=== PATIENT | male | born 1975 | race Caucasian/White ===

== ENCOUNTER 2024-02-18 05:06 | Emergency (ER) | payer BC ==
[2024-02-18] MEDS ORDERED: Sodium Chloride 0.9% 10 ML Syringe FLUSH PRN (05:38)
[2024-02-18 05:39] LABS: BASOPHILS ABSOLUTE AUTO 0.02 K/uL (0.00-0.20); BASOPHILS PERCENT AUTO 0.2 % (0.0-2.0); EOSINOPHILS ABSOLUTE AUTO 0.09 K/uL (0.00-0.50); EOSINOPHILS PERCENT AUTO 0.9 % (0.0-5.0); HEMATOCRIT 39.3 % (39.0-49.0); HEMOGLOBIN 13.4 g/dL (13.1-16.8); LYMPHOCYTES ABSOLUTE AUTO 1.78 K/uL (0.50-3.50); LYMPHOCYTES PERCENT AUTO 18.7 % (10.0-50.0); MEAN CORPUSCULAR HEMOGLOBIN 30.2 pg (28.2-33.3); MEAN CORPUSCULAR HGB CONC 34.1 g/dL (31.7-36.0); MEAN CORPUSCULAR VOLUME 88.5 fL (84.0-98.0); MONOCYTES ABSOLUTE AUTO 0.62 K/uL (0.00-1.00); MONOCYTES PERCENT AUTO 6.5 % (2.0-14.0); NEUTROPHILS PERCENT AUTO 73.7 % (45.0-80.0); PLATELET COUNT,PLT 213 K/uL (150-350); RED BLOOD CELL COUNT 4.44 M/uL (4.33-5.41); RED CELL DISTRIBUTION WIDTH 12.1 % (11.2-14.1); WHITE BLOOD CELL COUNT,WBC 9.5 K/uL (4.0-10.2)
[2024-02-18 06:01] LABS: ALANINE AMINOTRANSFERASE,ALT 336 U/L (12-78); ALBUMIN 3.4 g/dL (3.4-5.0); ALKALINE PHOSPHATASE 103 IU/L (46-116); ANION GAP 5.7 meq/L (7-15); ASPARTATE AMNIOTRANSFERASE,AST 189 U/L (15-37); BLOOD UREA NITROGEN,BUN 17 mg/dL (7-18); CALCIUM 8.9 mg/dL (8.5-10.1); CARBON DIOXIDE,CO2 30.3 mmol/L (21.0-32.0); CHLORIDE,CL 104 mmol/L (98-107); CREATININE 1.39 mg/dL (0.51-1.17); GLUCOSE RANDOM 115 mg/dL (70-99); LIPASE 43 U/L (16-77); POTASSIUM,K 3.8 mmol/L (3.5-5.1); PROTEIN TOTAL,TP 7.4 g/dL (6.4-8.2); SODIUM,NA 140 mmol/L (136-145)
[2024-02-18 06:05] LABS: ESTIMATED GFR 63 mL/min (>=60); ETHANOL BLOOD MEDICAL 0.003 g/dL (0.000-0.080)
[2024-02-18 06:12] VITALS: PULSE 79
[2024-02-18 06:27] VITALS: BP 126/84
== END 2024-02-18 06:47 | disposition home or self-care (01) ==
LOC: LL.ED 05:06
DX: R07.89 Other chest pain (principal); R94.5 Abnormal results of liver function studies; F17.210 Nicotine dependence, cigarettes, uncomplicated
CPT/HCPCS: 36415; 71046; 80053; 80307; 83690; 83735; 83880; 84484; 85025; 85379; 85610; 93005; 99285